=== PATIENT | female | born 1950 | race African-American/Black ===

== ENCOUNTER → 2016-10-11 | Day surgery (SDC) | payer OTHER ==
[~2016-10-11] MED LIST: ACETAMINOPHEN/HYDROcodone 325 MG/5 MG TAB ONE; BACITRACIN IM FOR SOLN 50,000 UNIT VIAL ONE; BUPIVACAINE/EPINEPHRINE 0.25% 50 ML VIAL ONE; BUPIVACAINE/EPINEPHRINE 0.5% PF 10 ML VIAL ONE; CYMB30CA PO; ESTR2TAB PO; FURO1TAB93 PO; GENTAMICIN SULFATE 80 MG/2 ML VIAL ONE; HYDR-3580 PO; KETOROLAC TROMETHAMINE 30 MG/ML (IVP) VIAL IV PUSH ONE; LABE200T2 PO; LACTATED RINGER'S 1000 ML INJ 1,000 ML ONE; LISI20 PO; LORT7.5T3 PO; MECL25 PO; METO5TAB PO; MIDAZOLAM HCL 2 MG/2 ML VIAL ONE; MORPHINE SULFATE 4 MG/ML INJ ONE; ONDANSETRON HCL 4 MG/2 ML VIAL IV PUSH ONE; PRAV80 PO; PROPOFOL 200 MG/20 ML AMP IV ONE; SODIUM CHLOR 0.9% 250 ML BAG IV ONE; SODIUM CHLORIDE 0.9% 20 ML VIAL ONE; VANCOMYCIN HCL 1000 MG VIAL ONE; VITA500T49 PO; ceFAZolin 2 GM PREMIX 50 ML ONE; ceFAZolin INJ 1,000 MG VIAL ONE
--- NOTE | 2016-10-11 10:33 | TN ---
cc: PB CONNELLY M.D. DATE OF SURGERY: 10/11/2016 PREOPERATIVE DIAGNOSIS 1. Right knee medial compartment osteoarthritis. 2. Chondromalacia patella. POSTOPERATIVE DIAGNOSIS 1. Right knee medial compartment osteoarthritis. 2. Chondromalacia patella. PROCEDURE Right knee medial unicondylar arthroplasty. SURGEON Zach Connelly MD RAIL LAYER Omid Connelly MD, [facility] SPECIMENS None. ESTIMATED BLOOD LOSS Minimum. COMPLICATIONS None. ANESTHESIA General. DRAIN One. TOURNIQUET TIME 44 minutes at 250 mmHg. CONDITION Stable. PLAN OF ACTIVITY Per orders. PROCEDURE My inventory control assistant Lc Connelly MD was present for the entire surgical case. He was medically necessary for the entire case because of the complexity of the case and to facilitate the performance of the procedure. The CADDYMASTER at the back table was not a skill set for this case to manipulate the instruments, e.g., the multiple different types of soft tissue retractors, trial implants and permanent implants. The patient was brought to the operating room and had satisfactory general endotracheal anesthesia by Dr. Tom, the Department of Anesthesia. The right lower extremity was prepped and draped in usual sterile manner. The extremity was exsanguinated by Chano wrap, tourniquet was inflated to 250 mmHg. Because of the patient's morbid obesity great care was made to protect all pressure points and soft tissues. A small anterior medial exposure was used. Primary capsulotomy was performed. The patient was found to have osteoarthritis of the medial compartment and osteoarthritis involving the medial facette of the patella. Oscillating saw was used to perform partial patellectomy of the medial facette of patella longitudinally. The remaining portion of the medial meniscus was removed. The medial patellar fat pad was excised. Anterior cruciate ligament was preserved. Using a [employer] unicondylar arthroplasty system, oscillating saw was used to remove the posterior condyle approximately 6 mm. A bur was then used to contour the proximal tibia to accept a #1 6.5 mm tibial component, distal femur was prepared to accept a #1 right medial femoral component. Balancing of the knee, the trial implants were used, the patient was found to have excellent balance of the knee in both flexion and extension. The wound was irrigated copiously. The wound itself was dry. Trial implants were removed. Preparation of cementing the implants were made. First the tibial implant was cemented using high viscosity bone cement by [employer]. Then the femoral component was cemented. All excess bone cement was removed. Bone cement was allowed to harden for 12 minutes. Tourniquet was deflated. The knee was injected with local anesthesia. The wound was irrigated with copious amounts of sterile saline. The wound itself was dry. All bleeders were then coagulated. The wound was drained over eighth inch Hemovac drain. The capsule was repaired with #2 Tycron suture, subcutaneous tissue layers with 2-0 Vicryl, skin was approximated with running subcuticular 3-0 Vicryl. Steri-Strips were placed over the incision. Sterile dressing was applied. The patient tolerated the procedure well and arrived in the recovery room in stable and satisfactory condition. MD SHAYLEE Lugo/TLL /9:58 AM /10:14 AM
== END | disposition home or self-care (01) ==
LOC: ESDC 06:57
PROVIDERS: ATTEND Orthopaedic Surgery Orthopaedic Surgery of the Spine
DX: M17.11 Unilateral primary osteoarthritis, right knee (principal); M22.41 Chondromalacia patellae, right knee
CPT/HCPCS: 01400; 27446; C1776; J0690; J1580; J1885; J2250; J2270; J2405; J3010; J3370; J7050; J7120

== ENCOUNTER → 2017-06-03 | Day surgery (SDC) | payer OTHER ==
[~2017-06-03] MED LIST changes: -ACETAMINOPHEN/HYDROcodone 325 MG/5 MG TAB ONE; -BACITRACIN IM FOR SOLN 50,000 UNIT VIAL ONE; -BUPIVACAINE/EPINEPHRINE 0.25% 50 ML VIAL ONE; -BUPIVACAINE/EPINEPHRINE 0.5% PF 10 ML VIAL ONE; -GENTAMICIN SULFATE 80 MG/2 ML VIAL ONE; -KETOROLAC TROMETHAMINE 30 MG/ML (IVP) VIAL IV PUSH ONE; -LACTATED RINGER'S 1000 ML INJ 1,000 ML ONE; -MIDAZOLAM HCL 2 MG/2 ML VIAL ONE; -MORPHINE SULFATE 4 MG/ML INJ ONE; -ONDANSETRON HCL 4 MG/2 ML VIAL IV PUSH ONE; -SODIUM CHLOR 0.9% 250 ML BAG IV ONE; -SODIUM CHLORIDE 0.9% 20 ML VIAL ONE; -VANCOMYCIN HCL 1000 MG VIAL ONE; -ceFAZolin 2 GM PREMIX 50 ML ONE; -ceFAZolin INJ 1,000 MG VIAL ONE
--- NOTE | 2017-06-03 11:33 | GIPROC ---
[facility] [address], [id number] EGD PROCEDURE REPORT EXAM DATE: 06/03/2017 PATIENT NAME: Dodie Reagan MR #: [id number] BIRTHDATE: 1950 ATTENDING: Dillan Ye MD ORDER #: [id number] CHEMICAL DEPENDENCY THERAPIST: Yunier Schaefer RN STATUS: outpatient INDICATIONS: The patient is a 67 yr old female here for an EGD due to dysphagia PROCEDURE PERFORMED: EGD w/ biopsy EGD w/ dilation of esophagus via guidewire MEDICATIONS: None, Per Anesthesia, None, and Per Anesthesia. TOPICAL ANESTHETIC: CONSENT: The patient understands the risks and benefits of the procedure and understands that these risks include, but are not limited to: sedation, allergic reaction, infection, perforation and/or bleeding. Alternative means of evaluation and treatment include, among others: physical exam, x-rays, and/or surgical intervention. The patient elects to proceed with this endoscopic procedure. medical equipment was checked for proper function. Hand hygiene and appropriate measures for infection prevention was taken. After the risks, benefits and alternatives of the procedure were thoroughly explained, Informed consent was verified, confirmed and timeout was successfully executed by the treatment team. The patient was anesthetized with topical anesthesia and the EC-2990i ([id number]) endoscope was introduced through the mouth and advanced to the second portion of the duodenum. Retroflexed views revealed no abnormalities The gastroscope was then slowly withdrawn and removed. ESOPHAGUS: There was a short benign appearing and mild stricture in the proximal esophagus. The stricture was traversable. The stricture was dilated using a 17mm (51Fr) savary dilator over guidewire. Following this dilation, there was a small mucosal rent. Irregular z line, this was biopsied. The endoscopy was otherwise normal. ADVERSE EVENTS: There were no complications. IMPRESSIONS: 1. There was a short stricture in the proximal esophagus; The stricture was dilated using a 17mm (51Fr) savary dilator over guidewire.; Following this dilation, there was a small mucosal rent 2. Irregular z line, this was biopsied 3. Normal endoscopy otherwise 4. Retroflexed views revealed no abnormalities RECOMMENDATIONS: 1. Await biopsy results. Biopsy results will not be ready for 7-10 days. If you don't hear from us in two weeks, call our office for biopsy results. 2. Follow-up: GI clinic 4 week(s) PATIENT CONDITION: stable DISPOSITION: Home REPEAT EXAM: Dillan Ye MD eSigned: Dillan Ye MD 06/03/2017 11:33 AM [facility] PATIENT NAME: Dodie Reagan MR#: [id number]
== END | disposition home or self-care (01) ==
LOC: ESDC 10:02
PROVIDERS: ATTEND Internal Medicine Gastroenterology
DX: R13.10 Dysphagia, unspecified (principal)
CPT/HCPCS: 88305; 88312